=== PATIENT | male | born 1940 | race Caucasian/White ===

== ENCOUNTER 2016-10-28 08:00 | Day surgery (SDC) | payer MEDICARE ==
[~2016-10-28] VITALS: Ht 182.9 cm; Wt 37.4 kg
[2016-10-28] VITALS (8 sets, daily range): BP systolic 149–163; BP diastolic 47–78; PULSE 57–63; RESP 8–16; O2SAT 92–97
[~2016-10-28 08:00] MED LIST: ASPI-973 PO; CARV3.12 PO; FINA5TAB9 PO; Lactated Ringer's 1,000 ML IV SCH; NITR-66 PO; OMEP20CA11 PO; TAMS0.4C98 PO; levoFLOXacin Inj 500 MG in IV Premix 1 EACH IV SCH
[2016-10-28] MEDS ORDERED: fentaNYL-PF 50 mCg/mL 2 mL Inj ONE (08:01)
[2016-10-28] MEDS ORDERED: Dexamethasone 4 mg/mL Inj ONE (08:01)
[2016-10-28] MEDS ORDERED: Ondansetron 2 mg/mL 2 mL Inj ONE (08:01)
[2016-10-28] MEDS ORDERED: levoFLOXacin 500 mg/100 mL D5W Premix IV ONE (08:06)
--- NOTE | 2016-10-28 09:35 | PCM.HPANE ---
Patient Data Date of Service: Oct 28, 2016 Surgeon Admitting Provider: Attending Provider:Kira Chew MD Primary Care Physician:Matthias Mata MD Other Provider:Patricia Smith Anesthesia Reason for Visit Urinary Retention Ht/WT & BMI Height (Feet): 6 Height (Inches): 0 Weight (Kilograms): 37.4 Body Mass Index 11.00 Allergies Coded Allergies: No Known Allergies (Unverified , 10/21/16) Past Anesthesia History Anesthesia History: Denies:: Abnormal Airway, Anesthesia Reactions, Difficult Intubation, Fam Anesthesia Reaction Diabetes History Hx Diabetes?: No MRSA MRSA: No Medications Blood Thinner: Aspirin Hypertension Medication: Yes Home Meds Incl Beta Alfonso: Yes Date Beta Alfonso Taken: Oct 28, 2016 Time Beta Alfonso Taken: 0600 Previous Beta Alfonso Dose >24: Previous Dose <24 Hours Reported Medications Nitrofurantoin Macrocrystal (Macrodantin)100 Mg [id number] Mg PO BID Ref 0 10/21/16 Tamsulosin (Flomax)0.4 Mg Capsule0.8 Mg PO DAILY Ref 0 10/21/16 Omeprazole 20 Mg Capsule.dr20 Mg PO DAILY Ref 0 10/21/16 Finasteride 5 Mg Tablet5 Mg PO DAILY 30 Days Ref 0 10/21/16 Carvedilol (Coreg)3.125 Mg Tablet3.125 Mg PO BID Ref 0 10/21/16 Aspirin 81 Mg Kiyoll94 Mg PO DAILY Ref 0 10/21/16 History History of ENT Problems?: No HEENT History: Positive for:: Hearing Problem (scarred eardrums- ) Denies:: Abnormal Airway Cataracts Difficult Intubation Dysphagia Glaucoma Sinus Problem TMJ Denture Type: Full- Upper Full- Lower Teeth Condition: No Teeth Hx of Heart Problems?: Yes Cardiovascular History: Positive for:: Hypertension Denies:: Chest Pain Edema Heart Murmur Irregular Heartbeat (palpitations neg w/u) Valvular Heart Disease Hx of Respiratory Problem?: No Respiratory History: Denies:: Asthma COPD Emphysema Oxygen Administration Pneumonia Tuberculosis Use of C-PAP Machine Hx Neurologic Problems?: No Neurological History: Denies:: CVA Headaches Multiple Sclerosis Parkinson's Disease Seizures Hx of GI Problems?: Yes Gastrointestinal History: Positive for:: Gastroesphageal Reflux (symptoms well controlled with omeprazole, sleeps with bed flat) Hx of Problems?: Yes Genitourinary History: Positive for:: Urinary Tract Infection (being treated for UTI) Other Pertinent History: borden catheter in place currently Male Hx: Positive for:: Prostate Problems (BPH) Skin History: Positive for:: History Skin Disorders? (recent BCC forehead excision with graft) Denies:: Pressure Ulcers Hx Musculoskeletal Problems?: Yes Musculoskeletal History: Positive for:: Osteoarthritis Denies:: Back Injury Fibromyalgia Joint Replacement Musculoskeletal Trauma Myasthenia Gravis Systemic Lupus Hx of Psycho/Social Problems?: No Psycho Social History: Denies:: Anxiety Hx Depression Hx Surgeries?: Yes (bcc, ) Hx Any Other Health Problems?: Yes Other History: Positive for:: Cancer (BCC- forehead recent resection/ radiation) Denies:: Thyroid Disease History Blood Transfusions: Positive for:: Accept Blood Products? Denies:: Blood Transfusions Hx Diabetes: No Hx Alcohol Use: NoHx Substance Use: No Smoking Status: Former Smoker (quit 20+ years ago) Have You Smoked inLast 12 mo: No Stop/Bang Treated for Sleep Apnea?: No Do You Have a CPAP Machine?: No S-Snoring: Do You Snore Loudly: No T-Tired: feel tired, fatigued: No O-Obsered: Observed not breath: No P-Blood Pressure: treated: Yes B- Body Mass Index > 35 kg/m2: No A- Age over 50: Yes N- Neck Large Circumference: No G- Gender Male: Yes GENEVA Total Score: 3 GENEVA Risk Assessment: High Risk, =/>3 Yes GENEVA Category 2: Yes Risk Assessment Category Category 1A: Patient has history of documented sleep apnea, and HAS NOT received any narcotic, sedative or anesthesia administration during this stay. Category 1B: Patient has history of documented sleep apnea, and HAS received any narcotic , sedative or anesthesia administration during this stay Category 2: Patient has SUSPECTED Obstructive Sleep Apnea, and HAS received any narcotic , sedative or anesthesia administration during this stay. Category 3: Patient has SUSPECTED Obstructive Sleep Apnea and HAS NOT received narcotic, sedative or anesthesia administration during this stay. Category 4: Outpatient in Procedural Areas with known sleep apnea or who screen positive for High Risk via the STOP/BANG questionnaire. Exam Exam Vital Signs Vital Signs Date Time Temp Pulse Resp B/P Pulse Ox O2 Delivery O2 Flow Rate FiO2 10/28/16 08:44 37.4 59 16 158/78 97 Room Air General Appearance: Alert, Oriented X3, Cooperative, No Acute Distress HEENT/AIRWAY: MP 2, Other (full dentures) Lungs: Clear to Auscultation Heart: Regular Rate/Rhythm, No Murmurs/Rubs/Gallops Meds/Labs/Diagnostics Admission Meds Current Medications Lactated Ringer's (Lr) 1,000 ml @ 120 mls/hr [id number] IV Last administered on t 08:57; Start 10/28/16 at 05:00; Stop 10/28/16 at 13:19 Plan Impression Patient chart reviewed, patient interviewed and anesthestic plan with risks, benefits, and alternatives discussed, and informed consent obtained. NPO per Anesth. Guidelines: Yes ASA Physical Status: ASA2 Mod Systemic Disease Anesthetic Plan: MAC, SAB Bene/Risks/Altern/Consents: Yes HP Complete Prior to Induction: Yes Matthias Stephen DO Oct 28, 2016 09:35
[2016-10-28] MEDS ORDERED: Lactated Ringer's 500 ML IV PRN (09:36)
[2016-10-28] MEDS ORDERED: Lactated Ringer's 1,000 ML IV SCH (09:36)
[2016-10-28] MEDS ORDERED: Phenylephrine 10,000 mCg/mL Inj IVPUSH PRN (09:40)
[2016-10-28] MEDS ORDERED: HYDROmorphone 1 mg/mL Inj IVPUSH PRN (09:40)
[2016-10-28] MEDS ORDERED: fentaNYL-PF 50 mCg/mL 2 mL Inj IVPUSH PRN (09:40)
[2016-10-28] MEDS ORDERED: Ondansetron 2 mg/mL 2 mL Inj IVPUSH PRN (09:40)
[2016-10-28] MEDS ORDERED: MetoCLOpramide 5 mg/mL 2 mL Inj IVPUSH PRN (09:40)
[2016-10-28] MEDS ORDERED: EPHEDrine Sulfate 50 mg/mL Inj IVPUSH PRN (09:40)
[2016-10-28] MEDS ORDERED: Dexamethasone 4 mg/mL Inj IVPUSH PRN (09:40)
[2016-10-28] MEDS ORDERED: Lactated Ringer's 1,000 ML IV ONE (10:22)
[2016-10-28] MEDS ORDERED: Belladonna Alk-Opium 60 mg Rectal Suppository RECTAL ONE (12:07)
[2016-10-28] MEDS ORDERED: Ondansetron 8 mg ODT Tablet PO PRN (12:25)
[2016-10-28] MEDS ORDERED: HYDROcodone-APAP 5-325 mg Tablet PO PRN (12:25)
--- NOTE | 2016-10-28 13:17 | PCM.ANEP1 ---
Post Anesthesia PACU Phase 1 Assessment Date of Service: Oct 28, 2016 Vital Signs Vital Signs Date Time Temp Pulse Resp B/P Pulse Ox O2 Delivery O2 Flow Rate FiO2 10/28/16 12:48 60 14 163/71 97 Room Air 10/28/16 12:40 36.8 63 13 154/47 96 Room Air 10/28/16 12:35 58 15 150/63 97 Nasal Cannula 3 10/28/16 12:30 59 14 149/71 97 Nasal Cannula 3 10/28/16 12:25 60 12 149/69 94 Nasal Cannula 3 10/28/16 12:20 37.1 57 8 151/72 94 Room Air 10/28/16 08:44 37.4 59 16 158/78 97 Room Air Level of Alertness: Sleepy, easy to arouse Pain: No Nausea or Vomiting: No CV Function & Hydration Stable: Yes Airway Device: Oxygen Delivery: Room Air Lungs: Clear to Auscultation PACU Phase 2 Assessment Complications: No Follow up Care: No Patient Instructions Provided: N/A Comments OPB, to floor Matthias Stephen DO Oct 28, 2016 13:17
--- NOTE | 2016-10-29 17:22 | PATH ---
SURGICAL PATHOLOGY Attending Physician:Kira Chew MD CASE STATUS: Signed Out PATIENT NAME: ANAHY LANGLEY PID: [id number] : 1940 DATE COLLECTED:10/28/2016 21:46 SPECIMEN: Prostate, Chips CLINICAL HISTORY: URINARY RETENTION, BENIGN PROSTATIC HYPERTROPHY OBSTRUCTION RETENTION 1). PROSTATE CHIPS FINAL DIAGNOSIS: 1.PROSTATE, TRANSURETHRAL RESECTION: PROSTATIC NODULAR STROMAL AND GLANDULAR HYPERPLASIA. BENIGN UROTHELIAL MUCOSA. NO EVIDENCE OF NEOPLASIA. ICD10 N40.1 GROSS DESCRIPTION: Received in formalin, labeled with the patient' s name and "prostate chips", is a collection of murillo tissue fragments measuring 5.0 x 2.5 x 1.0 cm in aggregate. All fragments are totally submitted in cassettes 1A and 1B. ([id number]) MICRO DESCRIPTION: See diagnosis. ICD-9 CODES: CPT CODES: 1: 11425 Electronically Signed Out Nichole Garcia MD [facility] Pathology [facility] [address], [place] [address] Technical component performed at [facility], [facility] [address], [place], [address]
--- NOTE | 2016-10-29 21:31 | OP ---
[address] [address] OPERATIVE REPORT PATIENT: ANAHY LANGLEY : 1940 MR#: [id number] ADMIT: 10/28/2016 JOB ID: [id number] DATE OF SURGERY: 10/28/2016 SURGEON: Kira Chew MD PROCEDURE: Transurethral resection of prostate. ANESTHESIA: General. PREOPERATIVE DIAGNOSIS(ES): 1. Retention of urine. 2. Benign prostatic hypertrophy with obstruction and bladder trabeculation. POSTOPERATIVE DIAGNOSIS(ES): 1. Retention of urine. 2. Benign prostatic hypertrophy with obstruction and bladder trabeculation. INDICATIONS: The patient is a 75 all done with a longstanding history of urinary symptoms presenting in urinary retention, failing numerous voiding trials with maximal medical therapy. Elective TURP is an attempt to begin voiding again on his own. He did have a rather large median lobe portion of his prostate. PROCEDURE IN DETAIL: After appropriate informed consent was obtained, the patient was brought to the operating room. He received IV antibiotics prior to the onset of the procedure. SCDs were placed. Adequate general anesthesia induced. He was carefully placed in the dorsal lithotomy position. All pressure points carefully padded. Cleaned, prepped, and draped in the usual sterile fashion. A 27 resectoscope was introduced into the patient's bladder. With the visual obturator was observed. The UOs were clearly visible. He had a large intravesical portion of his prostate. There was considerable sharp trabeculation with cellules throughout. We began to resect using the bipolar cutting loop and coag with the Thunderbeat system. The prostate was taken down in quadrants with great care taken to preserve the sphincter, verumontanum and ureteral orifices and also not to undermine the bladder neck. We also used the button function of the instrument to ablate tissue and further open up the channel. At termination of the procedure, hemostasis was quite good. We placed a 20-Swedish straight catheter and irrigated the patient's bladder out. It remained clear. The chips were handed off for permanent pathology. He was left with Stanford to gravity drainage. Tolerated the procedure very well and was awakened and taken in stable condition to postanesthesia care unit.
== END 2016-10-28 23:59 | disposition home or self-care (01) ==
LOC: SAS 08:00
PROVIDERS: ATTEND Urology
DX: N40.1 Benign prostatic hyperplasia with lower urinary tract symptoms (principal); R33.9 Retention of urine, unspecified; K21.9 Gastro-esophageal reflux disease without esophagitis; I10 Essential (primary) hypertension; N39.0 Urinary tract infection, site not specified; M19.90 Unspecified osteoarthritis, unspecified site; Z79.82 Long term (current) use of aspirin; Z79.899 Other long term (current) drug therapy; Z87.891 Personal history of nicotine dependence
CPT/HCPCS: 52601; 88305; J1100; J2250; J2405; J3010; J7120